=== PATIENT | female | born 1975 | race Caucasian/White ===

== ENCOUNTER 2017-03-21 13:44 | Outpatient (CLI) | payer OTHER ==
[2013-05-29 18:05] VITALS: TEMP 99.2
[2014-03-30 12:57] VITALS: BMI 20.3
[2017-03-21 14:01] LABS: BASOPHILS # (AUTO) 0.1 K/uL (0-0.2); BASOPHILS % (AUTO) 0.7 % (0.0-3.0); EOSINOPHILS # (AUTO) 0.1 K/ul (0.0-0.7); EOSINOPHILS % (AUTO) 1.1 % (0.0-7.0); HEMATOCRIT 42.8 % (37.0-47.0); HEMOGLOBIN 14.9 g/dl (12.0-16.0); IMMATURE GRANULOCYTE % (AUTO) 0.2 % (0.0-5.0); LYMPHOCYTES # (AUTO) 4.7 K/uL (0.60-3.4); MEAN CORPUSCULAR HEMOGLOBIN 31.4 pg (27.0-31.0); MEAN CORPUSCULAR HGB CONC 34.8 (31.8-35.4); MEAN CORPUSCULAR VOLUME 90.1 fl (81.0-99.0); MONOCYTES # (AUTO) 0.5 K/uL (0.4-2.0); MONOCYTES % (AUTO) 3.8 (0-10); NEUTROPHILS # (AUTO) 6.6 K/ul (2.0-6.9); NEUTROPHILS % (AUTO) 55.2; PLATELET COUNT 233 10^3/uL (140-440); RED BLOOD COUNT 4.75 10^6/ul (4.20-5.40); WHITE BLOOD COUNT 11.94 K/ul (4.6-10.2)
[2017-03-21 14:03] LABS: BILIRUBIN,URINE Negative (NEGATIVE); KETONES,URINE Negative (NEGATIVE); LEUKOCYTE ESTERASE ,URINE 1+ (NEGATIVE); NITRITE,URINE Positive (NEGATIVE); PROTEIN,URINE Negative (NEGATIVE); URINE, BLOOD Negative (NEGATIVE)
[2017-03-21 14:11] LABS: ADD URINE MICROSCOPIC YES
[2017-03-21 14:12] LABS: BACTERIA,URINE 2+ (NOT PRESENT)
[2017-03-21 14:14] LABS: COCAIN SCREEN,URINE NEGATIVE (NEGATIVE)
[2017-03-21 14:18] LABS: ANISOCYTOSIS NOT PRESENT (NOT PRESENT)
[2017-03-21 14:40] LABS: ERYTHROCYTE SEDIMENTATION RATE 11 mm/hr (0-20); ESR INTERNAL QC INTERNAL QC VALID
[2017-03-21 15:02] LABS: ALBUMIN 4.3 g/dL (3.4-5.0); ALBUMIN/GLOBULIN RATIO 1.26; ALKALINE PHOSPHATASE 135 U/L (42-98); ANION GAP 14.3; BILIRUBIN,TOTAL 0.46 mg/dL (0.00-1.20); CALCIUM 9.3 mg/dL (8.2-10.2); CARBON DIOXIDE 26 mmol/L (21-32); CHLORIDE 102 mmol/L (98-107); GLUCOSE 91 mg/dL (70-110); POTASSIUM 3.3 mmol/L (3.5-5.10); SODIUM 139 mmol/L (136-145); TOTAL PROTEIN 7.7 g/dL (6.4-8.2)
[2017-03-21 15:03] LABS: ALANINE AMINOTRANSFERASE 14 U/L (12-78); ASPARTATE AMINO TRANSFERASE 17 U/L (15-37); BLOOD UREA NITROGEN 5 mg/dL (7-18); BUN/CREATININE RATIO 7.46; CREATINE KINASE 22 U/L; CREATININE 0.67 mg/dL (0.60-1.30)
[2017-03-22 09:29] LABS: RAPID PLASMA REAGIN Non Reactive (Non Reactive)
[2017-03-25 19:08] LABS: IGG P18 AB Absent (.); IGG P23 AB Absent (.); IGG P28 AB Absent (.); IGG P30 AB Absent (.); IGG P39 AB Absent (.); IGG P41 AB Absent (.); IGG P45 AB Absent (.); IGG P58 AB Absent (.); IGG P66 AB Present (.); IGG P93 AB Absent (.); IGM P39 AB Absent (.); IGM P41 AB Absent (.)
[2017-03-26 09:38] LABS: LYME IGG WB INTERP Negative (.); LYME IGM WB INTERP Negative (.)
[2017-03-28 08:07] LABS: OPIATES NEGATIVE
[2017-03-28 08:08] LABS: BENZODIAZEPINES POSITIVE; PHENCYCLIDINE NEGATIVE
== END 2017-03-21 13:45 | disposition home or self-care (01) ==
LOC: LAB 13:44
PROVIDERS: ATTEND General Practice
DX: F11.90 Opioid use, unspecified, uncomplicated (principal); G96.9 Disorder of central nervous system, unspecified; G64 Other disorders of peripheral nervous system; G70.9 Myoneural disorder, unspecified; R07.9 Chest pain, unspecified; R52 Pain, unspecified; Z79.899 Other long term (current) drug therapy; Z87.898 Personal history of other specified conditions; Z72.0 Tobacco use
CPT/HCPCS: 36415; 80053; 80306; 81001; 82542; 82550; 84443; 84484; 85008; 85025; 85651; 86140; 86592; 86617; 87086; 87186

== ENCOUNTER 2017-03-22 10:34 | Outpatient (CLI) ==
[2013-05-29 18:05] VITALS: TEMP 99.2
[2014-03-30 12:57] VITALS: BMI 20.3
== END 2017-03-22 10:35 | disposition home or self-care (01) ==
LOC: CAR 10:34
PROVIDERS: ATTEND General Practice
DX: R07.9 Chest pain, unspecified (principal)
CPT/HCPCS: 93005; 93010

== ENCOUNTER 2017-04-12 16:29 | Emergency (ER) | payer OTHER ==
[2017-04-12 16:38] VITALS: BP 137/98; TEMP 98.3; BMI 23.5
--- NOTE | 2017-04-12 17:45 | DI ---
EXAM:Four view right knee COMPARISON: None HISTORY: Trauma and pain FINDINGS: There is no acute fracture or dislocation. Alignment is anatomic. Joint spaces are well preserved. There is no significant degenerative change. Soft tissues are unremarkable. No unexpecte d radio-opaque foreign bodies. IMPRESSION: No acute osseous abnormality.
--- NOTE | 2017-04-12 17:45 | ED.PDOC ---
General ED Provider: Dr. CARRIE ZELAYA Chief Complaint: Knee Pain/Injury Stated Complaint: knee pain, foot pain, ankle pain Time Seen by Physician: 16:36 (fall) Mode of Arrival: Walk-In Information Source: Patient Exam Limitations: No limitations Primary Care Provider[facility] Nursing and Triage Documentation Reviewed and Agree: Yes (seen with ronny) Trauma/Injury Complaint Exam - Trauma Complaint/Exam Location of Pain or Injury: Reports: RLE, LLE Mechanism of Injury: Reports: Fall Onset/Duration: today Symptoms Are: Still present Initial Severity: Mild Current Severity: Mild Character: Reports: Aching Aggravating: Reports: None Alleviating: Reports: Rest Associated Signs and Symptoms: Denies: LOC, Confusion, Memory loss, Lethargy, Vomiting, Bleeding, Bruising, Swelling, Extremity disuse, Painful respiration, Hoarseness, Dysphagia, Hemoptysis, Significant blood loss Related History: Reports: Similar episode Related Surgical History: Reports: None Nexus Low Risk Criteria: No post-midline CS tender, No evidence of intoxicat., No Altered LOC, No focal neuro deficit, No distracting injuries Glascow Coma Scale (see protocol): 15 Review of Systems - Review Of Systems Constitutional: Reports: No symptoms Eyes: Reports: No symptoms Ears, Nose, Mouth, Throat: Reports: No symptoms Respiratory: Reports: No symptoms Cardiac: Reports: No symptoms GI: Reports: No symptoms : Reports: No symptoms Musculoskeletal: Reports: Joint pain (knee, ankles tib, fib all bilateral) Skin: Reports: No symptoms Neurological: Reports: No symptoms Endocrine: Reports: No symptoms Hematologic/Lymphatic: Reports: No symptoms All Other Systems: Reviewed and Negative Past Medical History - Past Medical History Previously Healthy: No Endocrine: Reports: None Cardiovascular: Reports: None Respiratory: Reports: None Hematological: Reports: None Gastrointestinal: Reports: None Genitourinary: Reports: None Neuro/Psych: Reports: Seizure Musculoskeletal: Reports: Arthritis Cancer: Reports: None Last Menstrual Period: now - Surgical History General Surgical History: Reports: Unknown - Family History Family History: Reports: Unknown - Social History Smoking Status: Current every day smoker Hx Substance Use: No Alcohol Screening: None Physical Exam - Physical Exam Appearance: Well-appearing, No pain distress, Well-nourished Eyes: KINSEY, EOMI, Conjunctiva clear ENT: Ears normal, Nose normal, Oropharynx normal Respiratory: Airway patent, Breath sounds clear, Breath sounds equal, Respirations nonlabored Cardiovascular: RRR, Pulses normal, No rub, No murmur GI/: Soft, Nontender, No masses, Bowel sounds normal, No Organomegaly Musculoskeletal: Normal strength, ROM intact, No edema, No calf tenderness Skin: Warm, Dry, Normal color Neurological: Sensation intact, Motor intact, Reflexes intact, Cranial nerves intact, Alert, Oriented Psychiatric: Affect appropriate, Mood appropriate Critical Care Note - Critical Care Note Total Time (mins): 0 Course - Course Orders, Labs, Meds: Orders Category Date Time Status ANKLE, LEFT MIN 3 VIEWS Stat RADS 04/12/17 16:33 Ordered ANKLE, RIGHT MIN 3 VIEWS Stat RADS 04/12/17 16:33 Ordered FOOT, LEFT 3 VIEWS Stat RADS 04/12/17 16:34 Ordered FOOT, RIGHT 3 VIEWS Stat RADS 04/12/17 16:34 Ordered KNEE, LEFT 4 VIEWS Stat RADS 04/12/17 16:33 Ordered KNEE, RIGHT 4 VIEWS Stat RADS 04/12/17 16:33 Ordered TIBIA/FIBULA, LEFT 2 VIEWS Stat RADS 04/12/17 16:33 Ordered TIBIA/FIBULA, RIGHT 2 VIEW Stat RADS 04/12/17 16:33 Ordered Vital Signs: Temp Pulse Resp BP Pulse Ox 04/12/17 16:32 98.3 F 103 H 16 137/98 H 98 Departure - Departure Time of Disposition: 17:46 (ronny present ) Disposition: HOME SELF-CARE Discharge Problem: Knee pain Pain, ankle Qualifiers: Laterality: bilateral Chronicity: chronic Qualifier Code: (M25.571) Pain in right ankle and joints of right foot Instructions: Knee Pain (ED), Arthralgia (ED) Condition: Good Pt referred to PMD for follow-up: No Allergies/Adverse Reactions: Allergies acetaminophen [From Darvocet-N 100] Adverse Reaction (Unverified 04/12/17 16:36) levetiracetam [From Keppra] Adverse Reaction (Verified 04/12/17 16:36) propoxyphene napsylate [From Darvocet-N 100] Adverse Reaction (Unverified 16:36) tramadol Adverse Reaction (Unverified 04/12/17 16:36) Home Medications: Ambulatory Orders Hydrocodone Bit/Acetaminophen [Hydrocodon-Acetaminophn 10325] 10 mg PO QID 11/13 Dextroamphetamine/Amphetamine [Adderall 30 mg Tablet] 30 mg PO BID 03/30/14
--- NOTE | 2017-04-12 17:48 | DI ---
EXAM:Left knee four views COMPARISON: None HISTORY: Trauma and pain FINDINGS: There is no acute fracture or dislocation. Alignment is anatomic. Joint spaces are well preserved. There is no significant degenerative change. Soft tissues are unremarkable. No unexpecte d radio-opaque foreign bodies. IMPRESSION: No acute osseous abnormality.
--- NOTE | 2017-04-12 17:56 | DI ---
EXAM:Two-view left tibia-fibula COMPARISON: None HISTORY: Trauma and pain FINDINGS: There is no acute fracture or dislocation. Alignment is anatomic. Joint spaces are well preserved. There is no significant degenerative change. Soft tissues are unremarkable. No unexpecte d radio-opaque foreign bodies. IMPRESSION: No acute osseous abnormality.
--- NOTE | 2017-04-12 18:43 | DI ---
EXAM:Three-view left ankle COMPARISON: None HISTORY: Trauma and pain FINDINGS: There is no acute fracture or dislocation. Alignment is anatomic. Joint spaces are well preserved. There is no significant degenerative change. Soft tissues are unremarkable. No unexpecte d radio-opaque foreign bodies. IMPRESSION: No acute osseous abnormality.
--- NOTE | 2017-04-12 18:44 | DI ---
EXAM:Three-view left foot COMPARISON: None HISTORY: Trauma and pain FINDINGS: There is no acute fracture or dislocation. Alignment is anatomic. Joint spaces are well preserved. There is no significant degenerative change. Soft tissues are unremarkable. No unexpecte d radio-opaque foreign bodies. IMPRESSION: No acute osseous abnormality.
--- NOTE | 2017-04-12 18:56 | DI ---
EXAM:Two-view right tibia-fibula COMPARISON: None HISTORY: Trauma and pain FINDINGS: There is no acute fracture or dislocation. Alignment is anatomic. Joint spaces are well preserved. There is no significant degenerative change. Soft tissues are unremarkable. No unexpecte d radio-opaque foreign bodies. IMPRESSION: No acute osseous abnormality.
--- NOTE | 2017-04-12 18:58 | DI ---
EXAM:Three-view right ankle COMPARISON: None HISTORY: Trauma and pain FINDINGS: There is no acute fracture or dislocation. Alignment is anatomic. Joint spaces are well preserved. There is no significant degenerative change. There is some minimal soft tissue swelling seen laterally. The ankle mortise is intact. No unexpected radio-opaque foreign bodies. IMPRESSION: No acute osseous abnormality.
--- NOTE | 2017-04-12 19:17 | DI ---
EXAM:Three-view right foot COMPARISON: None HISTORY: Trauma and pain FINDINGS: There is no acute fracture or dislocation. Alignment is anatomic. Joint spaces are well preserved. There is no significant degenerative change. Soft tissues are unremarkable. No unexpecte d radio-opaque foreign bodies. IMPRESSION: No acute osseous abnormality.
== END 2017-04-12 17:56 | disposition home or self-care (01) ==
LOC: ED 16:29
DX: M25.572 Pain in left ankle and joints of left foot (principal); M25.571 Pain in right ankle and joints of right foot; M25.562 Pain in left knee; M25.561 Pain in right knee; M79.605 Pain in left leg; M79.604 Pain in right leg; W19.XXXA Unspecified fall, initial encounter; F17.210 Nicotine dependence, cigarettes, uncomplicated
CPT/HCPCS: 99283

== ENCOUNTER 2017-04-18 12:00 | Outpatient (CLI) | payer OTHER ==
[2013-05-29 18:05] VITALS: TEMP 99.2
[2017-04-22 19:09] LABS: IGG P18 AB Absent (.); IGG P23 AB Absent (.); IGG P28 AB Absent (.); IGG P30 AB Absent (.); IGG P39 AB Absent (.); IGG P41 AB Absent (.); IGG P45 AB Absent (.); IGG P58 AB Absent (.); IGG P66 AB Absent (.); IGG P93 AB Absent (.); IGM P39 AB Absent (.); IGM P41 AB Absent (.)
[2017-04-23 07:59] LABS: LYME IGG WB INTERP Negative (.); LYME IGM WB INTERP Negative (.)
== END 2017-04-18 12:01 | disposition home or self-care (01) ==
LOC: LAB 12:00
PROVIDERS: ATTEND General Practice
DX: R07.9 Chest pain, unspecified (principal); G70.9 Myoneural disorder, unspecified; R52 Pain, unspecified; Z72.0 Tobacco use; Z87.898 Personal history of other specified conditions; Z79.899 Other long term (current) drug therapy
CPT/HCPCS: 36415; 86617

== ENCOUNTER 2017-05-02 12:21 | Outpatient (CLI) ==
[2013-05-29 18:05] VITALS: TEMP 99.2
[2017-05-06 13:22] LABS: IGG P18 AB Absent (.); IGG P23 AB Absent (.); IGG P28 AB Absent (.); IGG P30 AB Absent (.); IGG P39 AB Absent (.); IGG P41 AB Present (.); IGG P45 AB Absent (.); IGG P58 AB Present (.); IGG P66 AB Absent (.); IGG P93 AB Absent (.); IGM P39 AB Absent (.); IGM P41 AB Absent (.)
[2017-05-07 07:15] LABS: LYME IGG WB INTERP Negative (.); LYME IGM WB INTERP Negative (.)
== END 2017-05-02 12:22 | disposition home or self-care (01) ==
LOC: LAB 12:21
PROVIDERS: ATTEND General Practice
DX: R07.9 Chest pain, unspecified (principal); G70.9 Myoneural disorder, unspecified; R52 Pain, unspecified; Z72.0 Tobacco use; Z79.899 Other long term (current) drug therapy; Z87.898 Personal history of other specified conditions
CPT/HCPCS: 36415; 86617

== ENCOUNTER 2017-05-10 10:03 | Outpatient (CLI) | payer OTHER ==
[2013-05-29 18:05] VITALS: TEMP 99.2
[2017-05-15 13:13] LABS: IGG P18 AB Absent (.); IGG P23 AB Absent (.); IGG P28 AB Absent (.); IGG P30 AB Absent (.); IGG P39 AB Absent (.); IGG P41 AB Absent (.); IGG P45 AB Absent (.); IGG P58 AB Absent (.); IGG P66 AB Absent (.); IGG P93 AB Absent (.); IGM P39 AB Absent (.); IGM P41 AB Absent (.)
[2017-05-15 14:04] LABS: LYME IGG WB INTERP Negative (.); LYME IGM WB INTERP Negative (.)
== END 2017-05-10 10:04 | disposition home or self-care (01) ==
LOC: LAB 10:03
PROVIDERS: ATTEND General Practice
DX: A69.20 Lyme disease, unspecified (principal); G64 Other disorders of peripheral nervous system; G96.9 Disorder of central nervous system, unspecified; Z87.898 Personal history of other specified conditions
CPT/HCPCS: 36415; 86617

== ENCOUNTER 2017-07-15 12:56 | Outpatient (CLI) ==
[2013-05-29 18:05] VITALS: TEMP 99.2
[2017-07-15 13:28] LABS: BASOPHILS # (AUTO) 0.1 K/uL (0-0.2); BASOPHILS % (AUTO) 1.1 % (0.0-3.0); EOSINOPHILS # (AUTO) 0.2 K/ul (0.0-0.7); EOSINOPHILS % (AUTO) 2.9 % (0.0-7.0); HEMATOCRIT 39.9 % (37.0-47.0); HEMOGLOBIN 13.8 g/dl (12.0-16.0); IMMATURE GRANULOCYTE % (AUTO) 0.3 % (0.0-5.0); LYMPHOCYTES # (AUTO) 3.6 K/uL (0.60-3.4); LYMPHOCYTES % (AUTO) 46.8 (10.0-50.0); MEAN CORPUSCULAR HEMOGLOBIN 31.9 pg (27.0-31.0); MEAN CORPUSCULAR HGB CONC 34.6 (31.8-35.4); MEAN CORPUSCULAR VOLUME 92.1 fl (81.0-99.0); MONOCYTES # (AUTO) 0.5 K/uL (0.4-2.0); MONOCYTES % (AUTO) 6.3 (0-10); NEUTROPHILS # (AUTO) 3.3 K/ul (2.0-6.9); NEUTROPHILS % (AUTO) 42.6; PLATELET COUNT 204 10^3/uL (140-440); RED BLOOD COUNT 4.33 10^6/ul (4.20-5.40); WHITE BLOOD COUNT 7.61 K/ul (4.6-10.2)
[2017-07-15 13:39] LABS: BILIRUBIN,URINE Negative (NEGATIVE); KETONES,URINE Negative (NEGATIVE); LEUKOCYTE ESTERASE ,URINE 1+ (NEGATIVE); NITRITE,URINE Positive (NEGATIVE); PH,URINE 5.5 (5-9); PROTEIN,URINE Negative (NEGATIVE); URINE, BLOOD 2+ (NEGATIVE)
[2017-07-15 13:51] LABS: ALBUMIN 3.8 g/dL (3.4-5.0); ALBUMIN/GLOBULIN RATIO 1.27; ANION GAP 18.2; BILIRUBIN,TOTAL 0.36 mg/dL (0.00-1.20); BUN/CREATININE RATIO 7.14; CALCIUM 8.8 mg/dL (8.2-10.2); CREATININE 0.7 mg/dL (0.60-1.30); POTASSIUM 3.2 mmol/L (3.5-5.10); TOTAL PROTEIN 6.8 g/dL (6.4-8.2)
[2017-07-15 14:05] LABS: ADD URINE MICROSCOPIC YES
[2017-07-15 14:07] LABS: BACTERIA,URINE 2+ (NOT PRESENT)
== END 2017-07-15 12:57 | disposition home or self-care (01) ==
LOC: LAB 12:56
PROVIDERS: ATTEND General Practice
DX: G96.9 Disorder of central nervous system, unspecified (principal); G64 Other disorders of peripheral nervous system; F41.9 Anxiety disorder, unspecified; G62.9 Polyneuropathy, unspecified; Z72.0 Tobacco use; Z79.899 Other long term (current) drug therapy; Z87.898 Personal history of other specified conditions
CPT/HCPCS: 36415; 80053; 80061; 81001; 85025; 87086

== ENCOUNTER 2017-07-17 13:54 | Outpatient (CLI) ==
[2013-05-29 18:05] VITALS: TEMP 99.2
== END 2017-07-17 13:55 | disposition home or self-care (01) ==
LOC: LAB 13:54
PROVIDERS: ATTEND General Practice
DX: A69.20 Lyme disease, unspecified (principal)
CPT/HCPCS: 36415; 86617

== ENCOUNTER 2018-03-17 09:17 | Outpatient (CLI) | payer OTHER ==
[2013-05-29 18:05] VITALS: TEMP 99.2
--- NOTE | 2018-03-17 09:45 | DI ---
EXAM: Three views of the left foot HISTORY: Left foot pain. COMPARISON: Left foot x-rays 04/12/2017 FINDINGS: There is no lytic or blastic lesion of the left foot. There is no displaced fracture or di slocation. The joint spaces are maintained. The arch is maintained. The soft tissues are unremarka ble. IMPRESSION: There is no cortical irregularity or displaced fracture of the left foot.
== END 2018-03-17 09:18 | disposition home or self-care (01) ==
LOC: RAD 09:17
PROVIDERS: ATTEND General Practice
DX: M79.672 Pain in left foot (principal)

== ENCOUNTER 2018-03-18 16:24 | Outpatient (CLI) | payer OTHER ==
[2013-05-29 18:05] VITALS: TEMP 99.2
== END 2018-03-18 16:25 | disposition home or self-care (01) ==
LOC: RHC-LAB 16:24
PROVIDERS: ATTEND General Practice
DX: L02.91 Cutaneous abscess, unspecified (principal)
CPT/HCPCS: 87070

== ENCOUNTER 2018-03-25 06:34 | Outpatient (CLI) ==
[2013-05-29 18:05] VITALS: TEMP 99.2
== END 2018-03-25 06:35 | disposition home or self-care (01) ==
LOC: FCC-LAB 06:34
PROVIDERS: ATTEND General Practice
DX: L97.919 Non-pressure chronic ulcer of unspecified part of right lower leg with unspecified severity (principal)
CPT/HCPCS: 87070

== ENCOUNTER 2018-04-02 14:02 | Outpatient (CLI) | payer OTHER ==
[2013-05-29 18:05] VITALS: BP 112/69; TEMP 99.2
[2018-04-03 09:50] VITALS: BMI 25.5
== END 2018-04-02 14:03 | disposition home or self-care (01) ==
LOC: FCC-LAB 14:02
PROVIDERS: ATTEND General Practice
DX: L97.319 Non-pressure chronic ulcer of right ankle with unspecified severity (principal); L03.115 Cellulitis of right lower limb
CPT/HCPCS: 36415; 80053; 85025

== ENCOUNTER 2018-04-03 08:04 | Inpatient (IN) ==
[2018-04-03 09:50] VITALS: BMI 25.5
[2018-04-03] MEDS ORDERED: NON-FORMULARY MEDICATION (Gabapentin [Gabapentin] 800 MG) PO SCH (10:00)
[2018-04-03] MEDS: NEURONTIN PO SCH ×5 (11:10→23:59)
[2018-04-03] MEDS: XANAX PO PRN ×2 (11:11→17:13)
[2018-04-03] MEDS: NORCO 10-325 PO PRN ×2 (11:11→17:13)
[2018-04-03] MEDS: NON-FORMULARY MEDICATION (Dextroamphetamine/Amphetamine [Adderall 30 Mg Tablet] 30 MG) PO SCH ×2 (11:11→21:13)
--- NOTE | 2018-04-03 11:20 | DI ---
EXAM: Radiographs, right tibia and fibula HISTORY: Right leg swelling and redness. COMPARISON: None available. TECHNIQUE: Frontal and lateral views. FINDINGS: Bone mineralization is normal. There is no fracture or dislocation. The joint spaces are maintained. No focal soft tissue abnormality is seen. IMPRESSION: No fracture or dislocation.
--- NOTE | 2018-04-03 11:21 | DI ---
EXAM: Radiographs, right ankle HISTORY: Right ankle swelling and redness. COMPARISON: 04/12/2017. TECHNIQUE: Three views. FINDINGS: Bone mineralization is normal. There is no fracture or dislocation. The joint spaces are maintained. No focal soft tissue abnormality is seen. IMPRESSION: No fracture or dislocation.
[2018-04-03] MEDS: VANCOMYCIN 1 GM in SODIUM CHLORIDE 250 ML IV SCH ×2 (11:55→21:13)
[2018-04-04] MEDS: NORCO 10-325 PO PRN ×4 (00:06→23:05)
[2018-04-04] MEDS: NEURONTIN PO SCH ×9 (05:00→23:05)
[2018-04-04] MEDS: VANCOMYCIN 1 GM in SODIUM CHLORIDE 250 ML IV SCH ×2 (08:55→20:12)
[2018-04-04] MEDS: XANAX PO PRN ×3 (08:57→23:05)
[2018-04-04] MEDS: NON-FORMULARY MEDICATION (Dextroamphetamine/Amphetamine [Adderall 30 Mg Tablet] 30 MG) PO SCH ×2 (09:09→20:26)
[2018-04-05] MEDS: NEURONTIN PO SCH ×4 (05:03→11:27)
[2018-04-05] MEDS: NORCO 10-325 PO PRN ×2 (05:03→11:26)
[2018-04-05] MEDS: XANAX PO PRN ×2 (05:03→11:27)
[2018-04-05] MEDS: NON-FORMULARY MEDICATION (Dextroamphetamine/Amphetamine [Adderall 30 Mg Tablet] 30 MG) PO SCH (08:38)
[2018-04-05] MEDS: VANCOMYCIN 1 GM in SODIUM CHLORIDE 250 ML IV SCH (08:45)
[2018-04-05 13:10] VITALS: BP 137/83; TEMP 97.8
--- NOTE | 2018-04-07 10:16 | HP ---
CHIEF COMPLAINT: Swelling, ulceration and redness of right lower leg near the ankle with beginning redness on the left side. HISTORY OF PRESENT ILLNESS: This patient has progressive muscular dystrophy and the diagnosis is still unknown at this time. The patient has weakness on both lower extremities and uses a leg brace to ambulate. She does walk with a cane. The leg brace has been putting pressure and caused some ulceration, more on the right side with infection causing some cellulitis. This patient was given Bactrim DS at the office to be taken twice a day. The problem, however, persisted. The culture done of the ulceration was negative for any significant growth. Because of the swelling and redness and the patient was complaining of tightness in the lower leg plus ankle, admission was felt needed for intravenous medication. The patient was agreeable. PAST PERSONAL HISTORY: The patient had tubal ligation in 1992 and biopsy of the nerve of the left foot. She also had episodes of blurred vision in past. Seizure disorder and the last seizure was 03/21/2018. She also has history of migraine headaches, as well as some sensation of chest heaviness in the past. She does have home oxygen. Lyme's disease 10 years ago. FAMILY HISTORY: Paternal side of the family is positive for malignancy, heart disease, diabetes and stroke. Maternal side is positive for malignancy and heart disease. SOCIAL HISTORY: The patient is single, but has grown children. She uses cigarettes and use is persistent. Denies any substance abuse and no alcoholic beverages. MEDICATIONS: Prior to this admission: Adderall 30 mg twice a day, Prescription that she carried from another physician to sd. Gabapentin 800 mg every 6 hours Hydrocodone/Acetaminophen 10/325 mg one tablet every 6 hours prn Xanax 0.5 mg tablet every 6 hours prn Bactrim DS one tablet twice a day, a new prescription ALLERGIES: The patient is allergic to Keflex, Keppra, Darvocet N and Tylenol. The Tylenol may be not the medication that caused adverse reaction, but maybe the Darvon. This patient is taking Hydrocodone with Tylenol and has no reaction. REVIEW OF SYSTEMS: CONSTITUTIONAL: The patient is alert with no fever or chills. She has no particular weakness. ATTORNEY GENERAL: The patient has neuromuscular disorder with diagnosis unknown. This patient has muscular weakness, as well as numbness. The patient appears to have a muscular dystrophy, which is ascending and progressive. It did affect the lower, as well as the upper extremities. The cerebral function, however is intact. This patient had a diagnosis of Lyme's disease some ten years ago. VISUAL: Denies any double vision, blurred vision or transient loss of vision. AUDITORY: Hearing is adequate. No tinnitus and no pain or drainage. RESPIRATORY: Denies any shortness of breath with exertion and the patient has no significant cough, in spite of her smoking. CARDIOVASCULAR: Denies any chest pain today or the last several days. GASTROINTESTINAL: Appetite is good and no problems swallowing solids or liquids. Denies any significant nausea and no vomiting. No diarrhea. She denies any abdominal pain. GENITOURINARY: Denies any pain on urination. MUSCULOSKELETAL: The patient has muscular dystrophy with muscle weakness and deformities of the fingers, as well as the leg and foot. She walks with a brace on both legs. ENDOCRINE: Negative. INTEGUMENT: Denies any rash or pruritus, but has ulceration in the right lateral leg with redness and sensation of tightness at the ankle. She also has some abrasions or beginning redness in the left medial leg above the medial malleolus left side. No petechia. HEMATOLOGIC: No history of prolonged bleeding. PSYCHIATRIC: Affect is normal. PHYSICAL EXAMINATION: GENERAL: We have a 42 year old female admitted to the hospital because of swelling and redness of the right lower leg above the lateral malleolus. One ulceration is bigger and the other one has a pustule. The patient had been taking Bactrim, but the problem has persisted. Admission was advised for IV antibiotics. HEAD: Unremarkable. FACE: Symmetrical and equal with no facial weakness. EYES: Pupils equal/reactive to light about 4 mm in size and rounded. Conjunctivae not pale. Sclerae not icteric. MOUTH: Unremarkable. THROAT: No inflammation, tumors or exudate. NECK: No masses. No bruit. No tenderness. No rigidity. CHEST: Symmetrical and equal with good expansion. LUNGS: Breath sounds are heard in both sides with no rales or wheezing. HEART: Audible and regular with good tones. No murmurs. ABDOMEN: Soft with no remarkable tenderness. No guarding. Bowel sounds are active. No masses palpable. EXTERNAL GENITALIA: Not examined. PELVIC AND RECTAL: Not performed. LOWER EXTREMITIES: Somewhat dissymmetrical with muscular dystrophy. Ulcerations in the right leg, lower, just above the ankle is noted with swelling and redness. There is an ulceration about a cm in size and sphere, as well as medial to that is a pustule. The patient also has some abrasion ulceration on the left leg, medial lower. UPPER EXTREMITIES: Symmetrical and equal, except for the dystrophic changes in the fingers. ASSESSMENT: 1. ULCERATIONS/PUSTULE RIGHT LOWER LEG ABOVE THE ANKLE, LATERAL WITH CELLULITIS 2. HISTORY OF LYME'S DISEASE 10 YEARS AGO 3. HISTORY OF SEIZURE DISORDER 4. CHRONIC TOBACCO USE AND ABUSE, PERSISTENT 5. HISTORY OF ANXIETY 6. HISTORY OF POLYNEUROPATHY MTDD
--- NOTE | 2018-04-07 12:02 | DS ---
PATIENT IDENTIFICATION: 42 year old female with muscular dystrophy has ulceration in the right lower leg, latereal, with swelling and redness with a pustule to the ulcer. The patient also has a beginning abrasion on the left medial leg above the malleolus. The patient described the area as sensation of tightness around the ankle. This patient is not able to walk very well without the brace. She does have two leg braces. It had been causing pressure, as well as pressure ulcerations. Because of the swelling and redness, admission was felt necessary since the patient had been taking Bactrim without any significant improvement. HOSPITAL COURSE: The patient throughout the hospital stay remained afebrile and her vital signs also were stable. This patient was given Vancomycin 1 gram IV every 12 hours. A culture of the pustule reviewed gram positive cocci,but no ID or BARRINGTON at this time. The patient today, 04/05/2018, is alert, oriented times four and happy to go home. The swelling and redness in the right lateral leg has resolved and the ulceration now has scabs. LUNGS: Clear to auscultation, except for the left lower base. There is no wheezing. HEART: Normal sinus rhythm. ABDOMEN: Nontender. BUSHEL WORKER: The patient denies any headaches or any visual disturbances. VITAL SIGNS: At 1:09 p.m. showed a temperature of 97.8, pulse 87, blood pressure 137/83, respiratory rate 16, oxygen saturation 96 at room air. The patient ate 100% of her lunch today. She told me that her appetite is back. PLAN: She is discharged today and to resume the Bactrim DS one twice a day and keep her appointment at the office made previously, Saturday or Saturday. If she has any recurrence of the problem, that she should call the office Saturday or if urgent that she should go to the emergency room. She is further instructed to drink plenty of liquids with the Bactrim DS. She should not use any of her leg braces at this time until gets a new one. She was walking around the hospital with the use of the wheelchair. I do think that she would probably should use a walker that has break controls and also a place to sit down if she gets tired. FINAL DIAGNOSES: 1. ULCERATION OF RIGHT LATERAL LEG WITH CELLULITIS, IMPROVED 2. MUSCULAR DYSTROPHY, ETIOLOGY UNDETERMINED 3. CHRONIC TOBACCO USE AND ABUSE, PERSISTENT 4. PUSTULE RIGHT LATERAL LEG, GRAM POSITIVE COCCI. NO ID AND BARRINGTON AT THIS TIME. 5. NEUROPATHY, ETIOLOGY UNDETERMINED. ON MEDICATION. 6. HISTORY OF SEIZURE DISORDER 7. HISTORY OF TUBAL LIGATION 8. HISTORY OF LYME'S DISEASE 10 YEARS AGO. NOTE: Reconcile medication with diagnosis with regards to Adderall and who prescribed this medication initially. NIK
--- NOTE | 2018-04-07 14:03 | PN ---
DATE OF VISIT: 04/04/18 The patient today is alert, responsive and had been ambulating with the use of a wheelchair. The swelling in the right ankle and leg has regressed remarkably. The pustule also has almost healed without any redness surrounding. The area of ulceration anterior to the pustule also is healing. It had scabs. VITAL SIGNS: At 5:24 p.m. on 04/04/18 showed a temperature of 97.9, pulse 69, blood pressure 112/79, respiratory rate 16, oxygen saturation 97 at room air. He appetite still is less than desired. She did consume 25% of her dinner. LUNGS: Clear to auscultation, except for the left lower base, which is diminished. This patient was advised to stop smoking. HEART: Normal sinus rhythm. This patient has more muscular atrophy of the right fingers and hand compared to the left. This patient had never been given a diagnosis of what kind of muscular dystrophy. She had been told that she had Lyme's disease 10 years ago , as well as MS and peripheral neuropathy, but no concrete diagnosis that would explain all of her problems. NIK
== END 2018-04-05 14:15 | disposition home or self-care (01) | DRG 593 ==
LOC: MEDSURG B 08:04
PROVIDERS: ADMIT General Practice; ATTEND General Practice
DX: L89.519 Pressure ulcer of right ankle, unspecified stage (principal); L03.115 Cellulitis of right lower limb; G71.0 Muscular dystrophy; L08.9 Local infection of the skin and subcutaneous tissue, unspecified; B95.61 Methicillin susceptible Staphylococcus aureus infection as the cause of diseases classified elsewhere; S90.512A Abrasion, left ankle, initial encounter; R26.2 Difficulty in walking, not elsewhere classified; G40.909 Epilepsy, unspecified, not intractable, without status epilepticus; F17.210 Nicotine dependence, cigarettes, uncomplicated; G70.9 Myoneural disorder, unspecified; G62.9 Polyneuropathy, unspecified; Z79.891 Long term (current) use of opiate analgesic; Z79.899 Other long term (current) drug therapy; Z86.19 Personal history of other infectious and parasitic diseases; Z16.11 Resistance to penicillins
CPT/HCPCS: 36415; 80053; 85025; 86592; 87040; 87070; 87186; 97802

== ENCOUNTER 2018-06-09 11:52 | Outpatient (CLI) ==
[2013-05-29 18:05] VITALS: TEMP 99.2
== END 2018-06-09 11:53 | disposition home or self-care (01) ==
LOC: FCC-LAB 11:52
PROVIDERS: ATTEND General Practice
DX: G64 Other disorders of peripheral nervous system (principal); A69.20 Lyme disease, unspecified; G96.9 Disorder of central nervous system, unspecified; G62.9 Polyneuropathy, unspecified; R53.83 Other fatigue; Z79.899 Other long term (current) drug therapy; Z87.898 Personal history of other specified conditions
CPT/HCPCS: 36415; 80053; 80061; 82525; 83540; 83735; 83880; 84100; 85025

== ENCOUNTER 2018-06-13 14:45 | Outpatient (CLI) | payer OTHER ==
[2013-05-29 18:05] VITALS: TEMP 99.2
== END 2018-06-13 14:46 | disposition home or self-care (01) ==
LOC: FCC-LAB 14:45
PROVIDERS: ATTEND General Practice
DX: R74.8 Abnormal levels of other serum enzymes (principal)
CPT/HCPCS: 36415; 84075; 84080

== ENCOUNTER 2018-07-18 10:48 | Emergency (ER) | payer OTHER ==
[2018-07-18 11:06] VITALS: BP 110/77; TEMP 98.3; BMI 24.7
--- NOTE | 2018-07-18 12:22 | ED.PDOC ---
General ED Provider: Dr. CARRIE ZELAYA Chief Complaint: Facial Injury Stated Complaint: SEZIURE, FACIAL INJURY Time Seen by Physician: 11:00 (SEEN WITH HALLE AT ALL TIMES ) Mode of Arrival: Walk-In Information Source: Patient, Family Exam Limitations: No limitations [facility] T[facility] Documentation Reviewed and Agree: Yes Does patient meet sepsis criteria?: No System Inflammatory Response Syndrome: Not Applicable Sepsis Protocol: For patient's 13 years and over: Temp is 96.8 and below OR 101 and greater Pulse >90 BPM Resp >20/minute Acutely Altered Mental Status Are patient's symptoms suggestive of a new infection, such as: -Pneumonia -Skin, Soft Tissue -Endocarditis -UTI -Bone, Joint Infection -Implantable Device -Acute Abdominal Infection -Wound Infection -Meningitis -Blood Stream Catheter Infection -Unknown Neurological Complaint Exam - Seizure Complaint/Exam Onset/Duration: HAD A SEIZURE AROUND 9 AM PT'S WAS ALONE Symptoms Are: Still present (PT FELL PT HAD BLACKED OUT AT A 1 DAY AGO WELL) Timing: Intermittent Episodes Lasting: Seconds Failed to Regain Consciousness: No Severity: Self-limited Location: All extremities (TENSE UP PER ), Facial movements (JAWS LOCK) , Eye deviation (ROLLED BACK IN THE HEAD ) Aggravating: Reports: None Alleviating: Reports: Spontaneous resolution Associated Signs and Symptoms: Reports: Anxiety (FAMILY 1 DAY AGO), Emotional distress. Denies: Impaired speech, Bladder incontinence, Bowel incontinence, Trauma, Illness, Vomiting, Lethargy, Apnea Related History: Reports: Similar episode SAH Risk Factors: Reports: Smoking Meningitis Risk Factors: Reports: None SDH Risk Factors: Reports: Seizures, Recent trauma (FACE SEE PHOTOS) Related Surgical History: Reports: None Active Seizure: Other (NO SEIZURE WHILE IN THE ED ) Carotid Bruit Present: No Cephalohematoma Present: No Tongue Bitten: No Neck Pain Present: No Glascow Coma Scale (see protocol): 15 Nystagmus Present: No Gag Reflex Present: Yes Speech: Present: Normal Findings Aphasia: Present: None Meningeal Signs Positive: No Focal Weakness: Present: None Focal Sensory Loss: Reports: None Gait: Unable Heel to Toe Normal: No (UNABLE ) Signs of Injury: Present: Contusion (FACE ) Differential Diagnoses: Intracranial Bleed, Metabolic Disorder, Metastatic Disease, Seizure Disorder Review of Systems - Review Of Systems Constitutional: Reports: No symptoms Eyes: Reports: No symptoms Ears, Nose, Mouth, Throat: Reports: No symptoms Respiratory: Reports: No symptoms Cardiac: Reports: No symptoms GI: Reports: No symptoms : Reports: No symptoms Musculoskeletal: Reports: No symptoms Skin: Reports: Other (facial contusion) Neurological: Reports: Weakness Endocrine: Reports: No symptoms Hematologic/Lymphatic: Reports: No symptoms All Other Systems: Reviewed and Negative Past Medical History - Past Medical History Previously Healthy: No Endocrine: Reports: None Cardiovascular: Reports: None Respiratory: Reports: None Hematological: Reports: None Gastrointestinal: Reports: None Genitourinary: Reports: None Neuro/Psych: Reports: Seizure Musculoskeletal: Reports: Arthritis Cancer: Reports: None Last Menstrual Period: 06/20/2018 - Surgical History General Surgical History: Reports: Unknown - Family History Family History: Reports: Unknown - Social History Smoking Status: Current every day smoker Hx Substance Use: No Alcohol Screening: None - Immunizations Tetanus Shot up to Date: Yes Physical Exam - Physical Exam Appearance: Ill-appearing Ill-appearing: Mild Pain Distress: Mild Eyes: KINSEY, EOMI, Conjunctiva clear ENT: Ears normal, Nose normal, Oropharynx normal Respiratory: Airway patent, Breath sounds clear, Breath sounds equal, Respirations nonlabored Cardiovascular: RRR, Pulses normal, No rub, No murmur GI/: Soft, Nontender, No masses, Bowel sounds normal, No Organomegaly Musculoskeletal: Normal strength, ROM intact, No edema, No calf tenderness Skin: Warm, Dry (FACIAL CONTUSION LEFT ORBIT SEE PHOTOS) Neurological: Sensation intact, Motor intact, Reflexes intact, Cranial nerves intact, Alert, Oriented Psychiatric: Affect appropriate, Mood appropriate Interpretation - Radiology Interpretation Radiology Interpretation By: Radiologist Radiology Results: No acute changes Exam Interpreted: CT Scan (of c/t spine negatibe head ct) - Student Records Specialist Rate: Normal Rhythm: Sinus Ectopy: None - EKG Interpretation Rate: Normal Rhythm: Sinus Ectopy: None [place]: NL ST Segment: Normal Critical Care Note - Critical Care Note Total Time (mins): 1 Course - Course Hematology/Chemistry: 07/18/18 11:12 07/18/18 11:12 Orders, Labs, Meds: Lab Review 07/18/18 07/18/18 07/18/18 11:12 11:12 11:12 WBC 7.56 RBC 4.38 Hgb 13.6 Hct 39.5 MCV 90.2 MCH 31.1 H MCHC 34.4 RDW Coeff of Isabell 13.1 Plt Count 225 Immature Gran % (Auto) 0.3 Neut % (Auto) 74.1 Lymph % (Auto) 21.2 [place] % (Auto) 3.8 Eos % (Auto) 0.1 Baso % (Auto) 0.5 Immature Gran # (Auto) 0.0 Neut # (Auto) 5.6 Lymph # (Auto) 1.6 [place] # (Auto) 0.3 L Eos # (Auto) 0.0 Baso # (Auto) 0.0 Puncture Site O2 Saturation ABG pH ABG pCO2 ABG pO2 ABG HCO3 ABG Total CO2 ABG Base Excess Joshua Test FiO2 % Sodium 139 Potassium 3.3 L Chloride 103 Carbon Dioxide 26 Anion Gap 13.3 BUN 4 L Creatinine 0.62 Estimated GFR (MDRD) 104.00 BUN/Creatinine Ratio 6.45 Glucose 109 Calcium 9.1 Total Bilirubin 0.4 AST 11 L ALT 8 L Alkaline Phosphatase 144 H Total Creatine Kinase 21 Troponin I < 0.0100 Total Protein 7.2 Albumin 3.8 Globulin 3.4 Albumin/Globulin Ratio 1.12 TSH 0.350 Free T4 0.92 Serum , Qual Negative Urine Color Urine Clarity Urine pH Ur Specific Mulga Urine Protein Urine Glucose (UA) Urine Ketones Urine Blood Urine Nitrite Urine Bilirubin Urine Urobilinogen Ur Leukocyte Esterase Urine Microscopic RBC Ur Squamous Epith Cells Urine Opiates Screen Ur Oxycodone Screen Urine Methadone Screen Ur Propoxyphene Screen Ur Barbiturates Screen U Tricyclic Antidepress Ur Phencyclidine Scrn Ur Amphetamine Screen U Methamphetamines Scrn U Benzodiazepines Scrn Urine Cocaine Screen U Cannabinoids Screen 07/18/18 07/18/18 07/18/18 11:19 12:33 12:33 WBC RBC Hgb Hct MCV MCH MCHC RDW Coeff of Isabell Plt Count Immature Gran % (Auto) Neut % (Auto) Lymph % (Auto) [place] % (Auto) Eos % (Auto) Baso % (Auto) Immature Gran # (Auto) Neut # (Auto) Lymph # (Auto) [place] # (Auto) Eos # (Auto) Baso # (Auto) Puncture Site Rr O2 Saturation 94.0 L ABG pH 7.489 H ABG pCO2 34.8 L ABG pO2 67.0 L ABG HCO3 26.5 H ABG Total CO2 28 ABG Base Excess 3 H Joshua Test + FiO2 % 21.0 Sodium Potassium Chloride Carbon Dioxide Anion Gap BUN Creatinine Estimated GFR (MDRD) BUN/Creatinine Ratio Glucose Calcium Total Bilirubin AST ALT Alkaline Phosphatase Total Creatine Kinase Troponin I Total Protein Albumin Globulin Albumin/Globulin Ratio TSH Free T4 Serum , Qual Urine Color Red Urine Clarity Cloudy Urine pH 6.5 Ur Specific Mulga 1.020 Urine Protein 2+ Urine Glucose (UA) Negative Urine Ketones 2+ Urine Blood 3+ Urine Nitrite Negative Urine Bilirubin 1+ Urine Urobilinogen 1.0 Ur Leukocyte Esterase Trace Urine Microscopic RBC Tntc Ur Squamous Epith Cells Not present Urine Opiates Screen Positive Ur Oxycodone Screen Negative Urine Methadone Screen Negative Ur Propoxyphene Screen Negative Ur Barbiturates Screen Negative U Tricyclic Antidepress Negative Ur Phencyclidine Scrn Negative Ur Amphetamine Screen Positive U Methamphetamines Scrn Negative U Benzodiazepines Scrn Positive Urine Cocaine Screen Negative U Cannabinoids Screen Negative Orders Category Date Time Status ABG DRAW REQUEST Stat CARDIO 07/18/18 11:20 Completed EKG-(ED ONLY) Stat CARDIO 07/18/18 11:19 Completed ED IV/MEDIPORT/POWERPORT .ONCE EMERGENCY 07/18/18 11:19 Active ABG Stat LAB 07/18/18 11:19 Completed BLOOD CULTURE Stat LAB 07/18/18 11:12 Received CBC W/ AUTO DIFF Stat LAB 07/18/18 11:12 Completed COMPREHENSIVE METABOLIC PANEL Stat LAB 07/18/18 11:12 Completed CREATINE KINASE Stat LAB 07/18/18 11:12 Completed FREE T4 (FREE THYROXINE) Stat LAB 07/18/18 11:12 Completed SERUM Stat LAB 07/18/18 11:12 Completed THYROID STIMULATING HORMONE Stat LAB 07/18/18 11:12 Completed TROPONIN I Stat LAB 07/18/18 11:12 Completed URINALYSIS C & S IF INDICATED Stat LAB 07/18/18 12:33 Completed URINE DRUG SCREEN (RAPID FOR ED) [DRUG SCREEN, URINE, LAB 07/18/18 12:33 Completed RAPID] Stat 0.9 % Sodium Chloride [Saline Flush] MEDS 07/18/18 11:19 Active 1 sy[address] IVF PRN PRN [address] CERVICAL SPINE W/O CONTRAST Stat RADS 07/18/18 11:[address] CHEST W/O CONTRAST Stat RADS 08/17/18 12:[address] HEAD W/O CONTRAST Stat RADS 07/18/18 11:[address] MAXILLOFACIAL W/O CONTRAST Stat RADS 07/18/18 11:[address] THORACIC SPINE W/O CONTRAST Stat RADS 07/18/18 11:21 Completed Medications Generic Name Dose Route Start Last Admin Trade Name Freq PRN Reason Stop Dose Admin Sodium Chloride 1 syr 07/18/18 11:19 07/18/18 11:46 Saline Flush IVF 1 syr PRN PRN Administration To flush IV Vital Signs: Temp Pulse Resp BP Pulse Ox 07/18/18 10:56 98.3 F 101 H 20 110/77 98 Departure - Departure Time of Disposition: 14:32 Disposition: HOME SELF-CARE Discharge Problem: Seizure, Seizure disorder UTI (urinary tract infection) Qualifiers: Hematuria presence: without hematuria Instructions: Epilepsy (ED), Urinary Tract Infection in Women (ED) Condition: Good Pt referred to PMD for follow-up: Yes IPMP verified?: No Additional Instructions: Please call your Family Physician as soon as possible to schedule a follow-up appointment. Allergies/Adverse Reactions: Allergies cephalexin monohydrate [From Keflex] Allergy (Severe, Verified 07/18/18 10:55) seizure activity Patient to notify drugstore acetaminophen [From Darvocet-N 100] Adverse Reaction (Verified 07/18/18 10:55) levetiracetam [From Keppra] Adverse Reaction (Verified 07/18/18 10:55) propoxyphene napsylate [From Darvocet-N 100] Adverse Reaction (Verified 10:55) tramadol Adverse Reaction (Verified 07/18/18 10:55) Home Medications: Ambulatory Orders Dextroamphetamine/Amphetamine [Adderall 10 mg Tablet] 10 mg PO Q6HR PRN Disposition Discussed With: Patient, Family
--- NOTE | 2018-07-18 13:50 | CT ---
CT facial bones without contrast History:Facial injury TECHNIQUE: Multi-slice sequential. Coronal and sagittal reformats were obtained. Comparison: CT head 03/30/2014 FINDINGS: No evidence of displaced facial bone fracture is seen. Mild mucosal thickening is seen within the bi lateral ethmoid and maxillary sinuses. Small amount of fluid is present within the right mastoid air cells. The left mastoid air cells appear clear. The bilateral temporal mandibular joints appear ma intained. Soft tissue swelling in the left infraorbital region is present. Impression: 1. No acute displaced facial bone fracture. 2. Soft tissue swelling in the left infraorbital region. 3. Mild bilateral ethmoid and maxillary sinus disease. 4. Mild right mastoiditis versus mastoid effusion.
--- NOTE | 2018-07-18 13:50 | CT ---
EXAM: CT Head HISTORY: Fall, injury COMPARISON: 03/30/2014 TECHNIQUE: CT head performed without contrast FINDINGS: There is no mass effect, midline shift, or intracranial hemmorhage. Sanchez white differenti ation is preserved. There is no extra-axial collection. The ventricles, sulci, and basal cisterns a re patent and symmetric. There is no depressed calvarial fracture. The mastoid air cells are clear. The visualized paranasal sinuses are clear. IMPRESSION: No acute intracranial abnormality.
--- NOTE | 2018-07-18 13:50 | CT ---
EXAM: CT thoracic spine without contrast HISTORY: Fall. COMPARISON: CT thoracic spine 09/22/2010 TECHNIQUE: Serial axial images of the thoracic spine were obtained without contrast. These were vie wed in multiple planes. FINDINGS: There is no compression fracture or subluxation. There is no lytic or blastic lesion. The facets and posterior processes are normal. Disc spaces are maintained. The soft tissues are unremar kable. IMPRESSION: No acute compression fracture or abnormality of the thoracic spine.
--- NOTE | 2018-07-18 13:52 | CT ---
EXAM: CT of the cervical spine without contrast History: Head and neck trauma. Technique: Multiplanar CT images through the cervical spine were obtained without the administration of IV contrast Findings: The visualized airway remains patent. Prominent bilateral neck lymph nodes are probably r eactive Visualized lungs are free of consolidation. Small to moderate right mastoid effusion. No acute fracture or subluxation of the cervical spine. No prevertebral soft tissue swelling. Prede ntal space is not widened. Disc space heights are relatively preserved. Bony spinal canal is not co mpromised. 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 Impression: No acute osseous abnormality of the cervical spine
--- NOTE | 2018-07-18 13:59 | CT ---
EXAM: CT chest without contrast HISTORY: Fall COMPARISON: None TECHNIQUE: Serial axial images of the chest were obtained from the lung apices to the upper abdomen without contrast. These were viewed in multiple planes. FINDINGS: The thyroid is normal. The visualized vessels are unremarkable without aneurysm or stenos is. The heart is normal in size without pericardial effusion. There are no pathologically enlarged mediastinal or hilar lymph nodes. There is no pneumothorax or pleural effusion. There is no consolidation, nodule or mass. The airway s are patent. There is no abnormal ground-glass. Osseous structures are unremarkable. Soft tissues are unremarkable. IMPRESSION: No acute abnormality or fracture.
== END 2018-07-18 15:00 | disposition home or self-care (01) ==
LOC: ED 10:48
DX: S05.12XA Contusion of eyeball and orbital tissues, left eye, initial encounter (principal); G40.909 Epilepsy, unspecified, not intractable, without status epilepticus; N39.0 Urinary tract infection, site not specified; F17.210 Nicotine dependence, cigarettes, uncomplicated; W19.XXXA Unspecified fall, initial encounter
CPT/HCPCS: 36415; 80053; 80306; 81001; 82550; 82803; 84439; 84443; 84484; 84703; 85025; 87040; 93005; 93010; 99283

== ENCOUNTER 2019-01-01 15:54 | Outpatient (CLI) | payer OTHER ==
[2013-05-29 18:05] VITALS: TEMP 99.2
== END 2019-01-01 15:55 | disposition home or self-care (01) ==
LOC: RHC-LAB 15:54
PROVIDERS: ATTEND General Practice
DX: R05 Cough (principal); R09.89 Other specified symptoms and signs involving the circulatory and respiratory systems
CPT/HCPCS: 87502

== ENCOUNTER 2019-03-06 10:29 | Outpatient (CLI) ==
[2013-05-29 18:05] VITALS: TEMP 99.2
--- NOTE | 2019-03-06 11:20 | DI ---
EXAM: Mandibular series four views HISTORY: Jaw pain FINDINGS: The patient is edentulous. There is no fracture or joint dislocation. General bone densi ty appears normal. IMPRESSION: 1. No distinct radiographic abnormality of the mandible.
--- NOTE | 2019-03-06 11:20 | DI ---
EXAM: CHEST FRONTAL AND LATERAL VIEWS HISTORY: Pleural pain. COMPARISON: None FINDINGS: Heart size and mediastinal contour within normal limits. No acute infiltrates. Ashley l vascularity with no pleural fluid or pneumothorax. The bony thorax has no acute finding. IMPRESSION: No acute process.
== END 2019-03-06 10:30 | disposition home or self-care (01) ==
LOC: RAD 10:29
PROVIDERS: ATTEND General Practice
DX: R07.81 Pleurodynia (principal); R68.84 Jaw pain

== ENCOUNTER 2019-05-04 12:08 | Outpatient (CLI) | payer OTHER ==
[2013-05-29 18:05] VITALS: TEMP 99.2
== END 2019-05-04 12:09 | disposition home or self-care (01) ==
LOC: RHC-LAB 12:08
PROVIDERS: ATTEND General Practice
DX: G62.9 Polyneuropathy, unspecified (principal); G96.9 Disorder of central nervous system, unspecified; Z79.899 Other long term (current) drug therapy; Z72.0 Tobacco use
CPT/HCPCS: 36415; 80053; 80061; 81001; 85025

== ENCOUNTER 2019-05-13 10:15 | Outpatient (CLI) ==
[2013-05-29 18:05] VITALS: TEMP 99.2
--- NOTE | 2019-05-13 10:43 | DI ---
EXAM: CHEST FRONTAL AND LATERAL VIEWS HISTORY: Cough. COMPARISON: 03/06/2019 FINDINGS: Heart size and mediastinal contour remain within normal limits. No acute infiltrates. Normal vascularity with no pleural fluid or pneumothorax. The bony thorax has no acute finding. IMPRESSION: No acute cardiopulmonary process.
== END 2019-05-13 10:16 | disposition home or self-care (01) ==
LOC: RAD 10:15
PROVIDERS: ATTEND General Practice
DX: E87.6 Hypokalemia (principal); R05 Cough; R53.1 Weakness; G96.9 Disorder of central nervous system, unspecified; R74.8 Abnormal levels of other serum enzymes; G62.9 Polyneuropathy, unspecified; D64.89 Other specified anemias; Z79.899 Other long term (current) drug therapy; Z72.0 Tobacco use
CPT/HCPCS: 36415; 80053; 80061; 81001; 82607; 82977; 83540; 83550; 83735; 85007; 85025